=== PATIENT | female | born 1975 | race Asian ===

== ENCOUNTER 2017-08-15 05:44 | Day surgery (SDC) | payer OTHER ==
[~2017-08-15] VITALS: Ht 157.5 cm; Wt 71.1 kg
[2017-08-15 06:44] VITALS: Ht 157.5 cm; Wt 71.1 kg
[2017-08-15] MEDS ORDERED: NO DAILY MEDS (06:46)
[2017-08-15] MEDS ORDERED: MIDAZOLAM 1 MG/ML 2 ML INJ ONE (07:00)
[2017-08-15] MEDS ORDERED: FENTAnyl 50 MCG/ML VIAL ONE (07:00)
[2017-08-15 07:11] VITALS: BP 106/51; PULSE 55; RESP 18
--- NOTE | 2017-08-15 07:44 | OPPN ---
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
--- NOTE | 2017-08-15 12:23 | GILP ---
DATE OF PROCEDURE: NAME OF PROCEDURES: Esophagogastroduodenoscopy and biopsy. SURGEON: Yanick Anthony MD PREOPERATIVE DIAGNOSIS: Abdominal pain. POSTOPERATIVE DIAGNOSES: 1. Gastritis with erosions. 2. Gastric mucosal biopsies were taken for Helicobacter pylori test. INDICATION FOR THE PROCEDURE: Ms. Ravi Peralta is a 42-year-old female patient who had upper abdom inal pain, not responding to therapy. Patient was scheduled for endoscopic examination for further evaluation. The procedure and possible complications were well explained to the patient. The patient understood and consented to the procedure. DESCRIPTION OF PROCEDURE: Under the influence of fentanyl and Versed, the gastroscope was carefully introduced into the esophagus and under direct vision it was advanced to the stomach and through th e pylorus into the duodenal bulb and descending duodenum. FINDINGS: ESOPHAGUS: The mucosa was normal. STOMACH: The patient had gastritis with erosions. Gastric mucosal biopsies were taken for H. pylor i test. DUODENUM: Normal. She tolerated the procedure very well and there was no complication from the procedure. At the end of the procedure, she was awake with stable vital signs and she was discharged home to the care of h family. IMPRESSION: Please see postoperative diagnoses. PLAN: 1. Omeprazole 40 mg p.o. q.a.m. 2. Zantac 300 mg p.o. at bedtime. 3. Await H. pylori test report. Dictated By: YANICK DON/FROYLAN Conf#: [id number] DID#: [id number]
== END 2017-08-15 18:46 | disposition home or self-care (01) ==
LOC: GIL 05:44
PROVIDERS: ATTEND Internal Medicine Gastroenterology
DX: K29.70 Gastritis, unspecified, without bleeding (principal)
CPT/HCPCS: 43239; 87081; J2250; J3010; Z7610